=== PATIENT | male | born 1970 | race Caucasian/White ===

== ENCOUNTER 2017-05-31 10:03 | Emergency (ER) | payer SELFPAY | END 2017-05-31 12:43 | disposition home or self-care (01) | PROVIDERS: Emergency Provider Emergency Medicine; Family Provider Emergency Medicine; Visit Provider Emergency Medicine | DX: G43.709 Chronic migraine without aura, not intractable, without status migrainosus (principal); J01.90 Acute sinusitis, unspecified; F17.210 Nicotine dependence, cigarettes, uncomplicated; Z88.1 Allergy status to other antibiotic agents; I10 Essential (primary) hypertension; E78.5 Hyperlipidemia, unspecified | CPT/HCPCS: 70450; 96372; 99284 ==

== ENCOUNTER → 2019-08-15 10:53 | Outpatient (CLI) | payer MEDICAID, SELFPAY ==
--- NOTE | 2019-08-15 10:58 | XR_ITS ---
PROCEDURE: XR KNEE RT 4V CLINICAL INDICATION: knee pain Pain and popping COMPARISON: No exams were available for comparison FINDINGS: No fracture or dislocation. No lytic or blastic change. There is normal mineralization. The joint spaces are well-preserved. No significant degenerative/arthritic changes. No erosive changes evident. Other findings:None. IMPRESSION: No acute findings. Dictated by: Shahid Vidal MD 08/15/2019 11:30 Electronically signed by Shahid Vidal MD in [place] 08/15/2019 11:30
== END ==
PROVIDERS: PCP Nurse Practitioner Family; Visit Provider Nurse Practitioner Family
DX: M25.561 Pain in right knee (principal)
CPT/HCPCS: 73564

== ENCOUNTER → 2019-08-20 13:11 | Outpatient (CLI) | payer MEDICAID, SELFPAY ==
--- NOTE | 2019-08-20 13:20 | MR_ITS ---
PROCEDURE: MR KNEE RT WO CON CLINICAL INDICATION: knee pain Medial knee pain COMPARISON: XR KNEE RT 4V from 08/15/2019 TECHNIQUE: Routine multiplanar multi echo sequences are performed without gadolinium enhancement. FINDINGS: The cruciate ligaments, collateral ligaments and patellar and quadriceps tendon appear intact. The lateral meniscus has an unremarkable appearance. There appears to be a small bucket-handle tear involving the posterior horn of the medial meniscus along the anterior aspect of the posterior horn. In addition there appears to be a defect in the medial aspect of the medial meniscus superiorly with abnormal configuration of the medial meniscus at this region suggesting an additional tear. There are mild tricompartmental osteoarthritic changes with some bone marrow edema the proximal tibia posteriorly as well as the medial femoral condyle. There is a small knee joint effusion with a small Dominguez's cyst. IMPRESSION: 1. There appears to be a nondisplaced bucket-handle type tear involving the posterior horn of the medial meniscus. An additional tear is felt to be in the medial meniscus medially along the body of the meniscus and posterior horn 2. Bone marrow edema of the medial femoral condyle and medial tibial plateau nonspecific. 3. Osteoarthritis Dictated by: Shahid Vidal MD 08/22/2019 09:57 Electronically signed by Shahid Vidal MD in [place] 08/22/2019 09:57
== END ==
PROVIDERS: PCP Nurse Practitioner Family; Visit Provider Orthopaedic Surgery
DX: M25.561 Pain in right knee (principal)
CPT/HCPCS: 73721

== ENCOUNTER 2019-11-21 13:04 | Emergency (ER) | payer MEDICAID, SELFPAY ==
[2019-11-21 13:05] VITALS: BP 138/52; PULSE 88; RESP 18; TEMP 36.9; O2SAT 97; BMI 27.3
--- NOTE | 2019-11-21 13:28 | HMH.EDGENADL ---
ED Disposition Clinical Impression: Edema at injection site Disposition: Home, Self-Care Condition on Discharge: Good Instructions: Edema (Alternative Therapy) Prescriptions: Compression Socks, Medium [Compression Socks] 1 each MC DAILY 30 Days #2 each Prescription Printed Referrals: Dom Menon MD [Primary Care Provider] - - Critical Care Critical Care Time: No Attestation: On 11/21/19, the high probability of a clinically significant, sudden or life threatening deterioration of the following system(s) required my full and direct attention, intervention and personal management. The time I documented below is in addition to time spent performing reported procedures but includes the following listed in this critical care notation. Medical Decision Making - Medical Records Medical records reviewed: Yes: I reviewed the patient's medical records. - Nakul Inquiry Pt receiving controlled substance: No - Lab Data Lab results reviewed: Yes: I reviewed the patient's lab results. General Adult HPI - General Chief complaint: Extremity Injury, Lower Stated complaint: both legs swollen Time Seen by Provider: 11/21/19 13:27 Source of Information: Patient - History of Present Illness HPI narrative: 49-year-old male is noticed some swelling bilaterally in his lower extremities. He states his been going on for a few days and has progressively gotten worse. He describes a tight feeling in both legs and he denies any other symptoms. He states he denies any recent fever shakes or chills he also denies any cough or shortness of breath patient also denies any headache malaise arthralgias myalgias or loss of sense of smell or taste. - Related Data Previous Rx's Medication Instructions Recorded lisinopril 10 mg tablet 10 mg PO DAILY #90 tab 06/07/19 clopidogrel 75 mg tablet 75 mg PO DAILY #90 tab 06/12/19 Compression Socks, Medium 1 each MC DAILY 30 Days #2 each 11/21/19 [Compression Socks] Allergies Allergy/AdvReac Type Severity Reaction Status Date / Time vancomycin [VANCOMYCIN] Allergy Intermediate red man Verified 08/23/19 10:20 syndrome [facility] History - Hepatitis A Screen Attestation statement:: This patient has been screened for Hepatitis A risk factors. I have reviewed the patient's past medical history: Yes Medical History: Reports:: Hypertension Denies:: Diabetes Mellitus Type 1, Diabetes Mellitus Type 2, MRSA Other Medical History: Reports: Arthritis, Other Other Surgeries: Yes: Appendectomy, Coronary Stent, Hernia Repair, Other Amputation: No Fractures: Yes Comment: left ankle,testicle surgery, left wrist - Social History Smoking Status: Current every day smoker Tobacco Type: cigarettes # Packs/Day (cigarettes): 1 Alcohol Intake: never Substance Use Type: opiates Occupational Status: other Family Hx:: Cancer, Heart Attack, Diabetes ROS Obtained: Yes All systems reviewed & no additional complaints - Constitutional Constitutional: Reports system reviewed and no additional complaints, except as docu - Eyes Eyes: Reports system reviewed and no additional complaints, except as docu - ENT Ears, Nose, Mouth, and Throat: Reports abnormal hearing - Cardiovascular Cardiovascular: Reports system reviewed and no additional complaints, except as docu - Respiratory Respiratory: Yes system reviewed and no additional complaints, except as docu - Gastrointestinal Gastrointestingal: Reports: system reviewed and no additional complaints, except as docu - Genitourinary Male Genitourinary: Reports system reviewed and no additional complaints, except as docu Female Genitourinary: Reports system reviewed and no additional complaints, except as docu - Musculoskeletal Musculoskeletal: Reports system reviewed and no additional complaints, except as docu - Integumentary/Breasts Skin/Breast: Reports system reviewed and no additional complaints, except as docu - Neurologic Neurol
[2019-11-21 14:08] VITALS: BP 126/74; PULSE 76; RESP 14; TEMP 36.8; O2SAT 98
== END 2019-11-21 14:10 | disposition home or self-care (01) ==
PROVIDERS: Emergency Provider Family Medicine; PCP Emergency Medicine
DX: R60.0 Localized edema (principal); I10 Essential (primary) hypertension; F17.210 Nicotine dependence, cigarettes, uncomplicated; Z90.49 Acquired absence of other specified parts of digestive tract
CPT/HCPCS: 99281

== ENCOUNTER → 2020-01-09 16:39 | Outpatient (CLI) | payer MEDICAID, SELFPAY | PROVIDERS: PCP Physician Assistant; Visit Provider Physician Assistant | DX: Z03.818 Encounter for observation for suspected exposure to other biological agents ruled out (principal) | CPT/HCPCS: U0003 ==

== ENCOUNTER 2020-01-25 16:33 | Emergency (ER) | payer MEDICAID, SELFPAY ==
[2020-01-25 16:44] VITALS: BP 136/99; PULSE 85; RESP 18; TEMP 36.9; O2SAT 98; BMI 27.0
--- NOTE | 2020-01-25 17:05 | HMH.EDUTC ---
[facility] [place] Clinical Impression: Vomiting and diarrhea, Viral syndrome Disposition: Home, Self-Care Condition on Discharge: Good Instructions: DI for Vomiting -- Adult, Nausea and Vomiting-Adult, Diarrhea, Preventing the Spread of Coronavirus Discharge Instructions Additional Instructions: *Monitor Temp, Over the counter Motrin or Tylenol as directed/as needed Tylenol every 4 hours and Motrin every 6 hours (as long as your family doctor has told you that you can take it) for fever or pain. and straight to ER if unable to lower temp less than 101.0 after medication given *Warm salt water gargles may help to soothe the throat *Throat Lozenges *Warm fluids like tea with honey may help to soothe the throat *Sleep elevated *Humidifier/Vaporizer You was tested for COVID 19. call back to the [facility] in the next 48-72 hours for the result of your COVID test You was given handout with instructions to Self Quarantine and Self Isolation make sure to follow instructions Make sure that you are drinking plenty of fluids to keep yourself hydrated Return if needed Your throat swab was sent for culture. Those results are typically sent to your primary care. Be sure to follow up in 2-3 days with your family doctor/primary care physician if no improvement so they can review those result and treat if necessary. If you don?t have a primary care doctor, I recommend you get one but in the mean time, you will have to return to a walk in clinic Follow up IMMEDIATELY for new or worsening symptoms or no Noticeable improvement over the next 48-72 hours. 911 for difficulty breathing or swallowing Prescriptions: Ondansetron [Zofran 4mg ODT] 4 mg PO Q8HP PRN #6 tab.rapdis PRN Reason: Nausea Prescription Printed Referrals: Amanda Leblanc PA [Primary Care Provider] - As needed Time of Disposition: 17:23 Medical Decision Making - Nakul Inquiry Pt receiving controlled substance: No Nakul was queried for this patient: No Vital Signs: 01/25/20 16:44 Temperature 98.4 F Temperature Source Oral Pulse Rate [Radial] 85 Respiratory Rate 18 Blood Pressure [Right Arm] 136/99 H Blood Pressure Mean [Right Arm] 111 Blood Pressure Source [Right Arm] Automatic Cuff 02 Sat by Pulse Oximetry 98 Oxygen Delivery Method Room Air Orders (Tests/Meds): ORDERS Category Date Time Status SARS-CoV-2, JUAN ([place]) Stat Lab 01/25/20 16:47 Ordered [facility] [place] HPI - General Stated complaint: Body aches, diarrhea, vomiting Time Seen by Provider: 01/25/20 17:05 Mode of Arrival: Ambulatory Source of Information: Patient Limitations: No Limitations Description of Symptoms (Recalled from Triage Doc. by RN): diarrhea, vomiting, joint pain, sore throat, fever. states he was recently tested for covid and it was negative. HEENT Symptoms (Recalled from RN notes): Yes Resp Symptoms (Recalled from RN notes): No Skin Symptoms (Recalled from RN notes): No MS Symptoms (Recalled from RN notes): Yes Functional Status (Recalled from RN notes): wnl - History of Present Illness Provider Complaint: Patient states that he hasnt been feeling well on and off for a couple of weeks States that he was tested for COVID and was negative State that for the last several days he was feeling worse States that he has been having vomiting and diarrhea and was aftraid that now he may be positive and work wanted him tested before they would let him come back to work - Related Data Home Medications Medication Instructions Recorded Confirmed aspirin 81 mg tablet,delayed 81 mg PO DAILY 12/23/19 12/23/19 release Previous Rx's Medication Instructions Recorded lisinopril 10 mg tablet 10 mg PO DAILY #90 tab 06/07/19 clopidogrel 75 mg tablet 75 mg PO DAILY #90 tab 06/12/19 Ondansetron [Zofran 4mg ODT] 4 mg PO Q8HP PRN #6 tab.rapdis 01/25/20 Allergies Allergy/AdvReac Type Severity Reaction Status Date / Time vancomycin [VANCOMYCIN] Allergy Intermediate red man Camila
[2020-01-25 17:28] VITALS: BP 136/99; PULSE 85; RESP 18; TEMP 36.9; O2SAT 98
[2020-01-27 09:54] LABS: Covid-19 Nasal PCR Sendout UK NOT DETECTED
== END 2020-01-25 17:31 | disposition home or self-care (01) ==
PROVIDERS: Emergency Provider Nurse Practitioner; PCP Physician Assistant
DX: B34.9 Viral infection, unspecified (principal); Z20.828 Contact with and (suspected) exposure to other viral communicable diseases; I10 Essential (primary) hypertension
CPT/HCPCS: 99201; U0003

== ENCOUNTER 2020-08-17 22:29 | Emergency (ER) | payer MEDICAID, SELFPAY ==
[2020-08-18 01:54] VITALS: BP 183/103; PULSE 66; RESP 19; TEMP 36.7; O2SAT 100; BMI 29.0
[2020-08-18 02:00] VITALS: PULSE 67; O2SAT 100
--- NOTE | 2020-08-18 02:11 | XR_ITS ---
PROCEDURE: XR WRIST RT MIN 3V CLINICAL INDICATION: pain and swelling to hand/wrist post fall COMPARISON: No exams were available for comparison FINDINGS: No fracture or dislocation. No lytic or blastic change. There is normal mineralization. The joint spaces are well-preserved. No significant degenerative/arthritic changes. No erosive changes evident. Other findings:None. IMPRESSION: No acute findings. Dictated by: Shahid Vidal MD 08/18/2020 05:23 Shahid Vidal MD in [place] 08/18/2020 05:23
--- NOTE | 2020-08-18 02:11 | XR_ITS ---
PROCEDURE: XR HAND RT MIN 3V CLINICAL INDICATION: pain and swelling to hand/wrist post fall COMPARISON: No exams were available for comparison FINDINGS: Nondisplaced mildly impacted fracture involves distal shaft of the 5th metacarpal. There is mild radial and palmar angulation of the distal fracture fragment. Osteoarthritic change 1st metacarpal phalangeal joint. Other findings:None. IMPRESSION: Nondisplaced mildly impacted fracture distal 5th metacarpal Dictated by: Shahid Vidal MD 08/18/2020 05:24 Shahid Vidal MD in [place] 08/18/2020 05:24
--- NOTE | 2020-08-18 02:11 | XR_ITS ---
PROCEDURE: XR FOREARM RT 2V CLINICAL INDICATION: pain and swelling to right hand after fall COMPARISON: No exams were available for comparison FINDINGS: No fracture or dislocation. No lytic or blastic change. There is normal mineralization. The joint spaces are well-preserved. No significant degenerative/arthritic changes. No erosive changes evident. Other findings:None. IMPRESSION: No acute findings. Dictated by: Shahid Vidal MD 08/18/2020 05:25 Shahid Vidla MD in [place] 08/18/2020 05:25
--- NOTE | 2020-08-18 03:32 | HMH.EDUPEXT ---
ED Disposition Clinical Impression: Isak's fracture Qualifiers: Encounter type: initial encounter Fracture type: closed Qualified Code(s): S62.339A - Displaced fracture of neck of unspecified metacarpal bone, initial encounter for closed fracture Disposition: Home, Self-Care Condition on Discharge: Good Instructions: DI for a Hand Fracture Additional Instructions: ice and call ortho this am Referrals: Dom Menon MD [Primary Care Provider] - Rosalinda Barahona MD [Physician] - - Critical Care Critical Care Time: No Attestation: On 08/17/20, the high probability of a clinically significant, sudden or life threatening deterioration of the following system(s) required my full and direct attention, intervention and personal management. The time I documented below is in addition to time spent performing reported procedures but includes the following listed in this critical care notation. Medical Decision Making - Medical Records Medical records reviewed: Yes: I reviewed the patient's medical records. - Nakul Inquiry Pt receiving controlled substance: No Vital Signs: 08/18/20 01:54 08/18/20 02:00 Temperature 98.1 F Temperature Source Oral Pulse Rate [Left Brachial] 66 67 Respiratory Rate 19 Blood Pressure [Left Arm] 183/103 H Blood Pressure Mean [Left Arm] 129 Blood Pressure Source [Left Arm] Automatic Cuff 02 Sat by Pulse Oximetry 100 100 Oxygen Delivery Method Room Air Room Air Orders (Tests/Meds): ORDERS Category Date Time Status XR forearm RT 2V Stat Exams 08/18/20 02:11 Taken XR hand RT min 3V Stat Exams 08/18/20 02:11 Taken XR wrist RT min 3V Stat Exams 08/18/20 02:11 Taken - Radiology Data #1 Image(s): Forearm, Wrist, Hand Image Reviewed: Yes I reviewed the patient's radiology image Preliminary Findings: Abnormal (boxholger fx ) Medical Decision Narrative: has boxers fx and will refer to ortho Upper Extremity HPI - General Chief Complaint: Extremity Injury, Upper Stated Complaint: AO 08/16 injured R hand Time Seen by Provider: 08/18/20 02:20 Mode of Arrival: Ambulatory Source of Information: Patient, Medical Record Limitations: No Limitations Description of Symptoms (Recalled from ER Triage Doc. by RN): Pt reports he fell 08/16/20 AM when walking and he fell with his right hand closed, fist striking the ground. Pt c/o pain and swelling to right hand. He also reports that he has trouble moving 4th and 5th digits and wrist of right hand. - History of Present Illness HPI narrative: fell with injury to rt hand with pain and swelling MD complaint: injury to: right, hand Onset (ago): day(s) Other Extremity Injury: Right: hand, wrist Handedness: right Place: home Severity: moderate Context: fall Associated symptoms: denies other symptoms - Related Data Home Medications Medication Instructions Recorded Confirmed aspirin 81 mg tablet,delayed 81 mg PO DAILY 12/23/19 12/23/19 release Previous Rx's Medication Instructions Recorded lisinopril 10 mg tablet 10 mg PO DAILY #90 tab 06/07/19 clopidogrel 75 mg tablet 75 mg PO DAILY #90 tab 06/12/19 Ondansetron [Zofran 4mg ODT] 4 mg PO Q8HP PRN #6 tab.rapdis 01/25/20 Allergies Allergy/AdvReac Type Severity Reaction Status Date / Time vancomycin [VANCOMYCIN] Allergy Intermediate red man Verified 12/23/19 09:56 syndrome [facility] History - Hepatitis A Screen Drug use history?: Yes High risk sexual behaviors?: No History of sexually transmitted infection?: No Currently employed?: No Childcare worker?: No Do you have indoor plumbing?: Yes Do you have electricity?: Yes Attestation statement:: This patient has been screened for Hepatitis A risk factors. I have reviewed the patient's past medical history: Yes Medical History: Reports:: Hypertension Denies:: Cancer, Diabetes Mellitus Type 1, Diabetes Mellitus Type 2, Internal Pacemaker, MRSA Other Medical History: Reports: Arth
[2020-08-18 04:08] VITALS: BP 157/84; PULSE 67; RESP 18; TEMP 36.7; O2SAT 100
== END 2020-08-18 04:10 | disposition home or self-care (01) ==
PROVIDERS: Emergency Provider Emergency Medicine; PCP Emergency Medicine
DX: S62.306A Unspecified fracture of fifth metacarpal bone, right hand, initial encounter for closed fracture (principal); W01.0XXA Fall on same level from slipping, tripping and stumbling without subsequent striking against object, initial encounter; Y92.019 Unspecified place in single-family (private) house as the place of occurrence of the external cause; I10 Essential (primary) hypertension; F17.210 Nicotine dependence, cigarettes, uncomplicated
CPT/HCPCS: 29125; 73090; 73110; 73130; 99283

== ENCOUNTER → 2020-08-21 10:49 | Outpatient (CLI) | payer MEDICAID, SELFPAY ==
[2020-08-21 11:12] LABS: Basophils # 0.1 K/mm3 (0-0.2); Basophils % 1.5 % (0.1-2.0); Eosinophils # 0.2 K/mm3 (0.0-0.4); Eosinophils % 3.2 % (0.1-12.0); Hematocrit 49.1 % (42.0-52.0); Hemoglobin 15.7 g/dL (14.1-18.0); Lymphocytes # 2.9 K/mm3 (0.7-4.5); Lymphocytes % 43.5 % (10-50); Mean Corpuscular HGB Conc 32.1 g/dL (31.8-35.4); Mean Corpuscular Hemoglobin 32.9 pg (27.0-31.2); Mean Corpuscular Volume 102.6 fl (80-94); Mean Platelet Volume 7.8 fl (7.4-10.4); Monocytes # 0.4 K/mm3 (0.1-1.0); Neutrophils # 3.1 K/mm3 (1.8-7.8); Neutrophils % 45.9 % (37.0-80.0); Platelet Count 194 K/mm3 (142-424); Red Blood Count 4.78 M/mm3 (4.60-6.20); Red Cell Distribution Width 14.2 % (11.5-17.5); White Blood Count 6.8 K/mm3 (4.8-10.8)
[2020-08-21 11:22] LABS: Chloride 105 mmol/L (98-107); Sodium 142 mmol/L (136-145)
[2020-08-21 11:23] LABS: Potassium 4.7 mmoL/L (3.5-5.1)
[2020-08-21 11:25] LABS: Blood Urea Nitrogen 10 mg/dl (9-20); Estimated Glomerular Filt Rate 102 ml/min (>60); GFR (African American) 124 ML/MIN (>60)
[2020-08-21 11:26] LABS: Anion Gap 10.7 mEq/L (5-15); Calcium 9.8 mg/dl (8.4-10.2); Carbon Dioxide 31 mmol/L (22.0-30.0); Glucose 107 mg/dl (74-100)
== END ==
PROVIDERS: Visit Provider Orthopaedic Surgery
DX: Z01.818 Encounter for other preprocedural examination (principal); S62.339A Displaced fracture of neck of unspecified metacarpal bone, initial encounter for closed fracture
CPT/HCPCS: 36415; 80048; 85025

== ENCOUNTER → 2020-08-25 12:42 | Outpatient (CLI) | payer MEDICAID, SELFPAY ==
[2020-08-25 13:38] LABS: Coronavirus 19 IgG Antibody Negative (Negative); Coronavirus 19 IgM Antibody Negative (Negative)
== END ==
PROVIDERS: Visit Provider Orthopaedic Surgery
DX: Z01.818 Encounter for other preprocedural examination (principal); Z20.822 Contact with and (suspected) exposure to COVID-19; S62.339A Displaced fracture of neck of unspecified metacarpal bone, initial encounter for closed fracture
CPT/HCPCS: 36415; 86328

== ENCOUNTER 2020-08-26 06:17 | Day surgery (SDC) | payer MEDICAID, SELFPAY ==
[2020-08-24 15:07] VITALS: BMI 27.0
[2020-08-26] VITALS (14 sets, daily range): BP systolic 116–144; BP diastolic 69–91; PULSE 63–75; RESP 14–18; TEMP 6.1–43; O2SAT 92–100
--- NOTE | 2020-08-26 07:06 | HMH.ANESCL ---
[facility] Anesthesia Checklist - Patient Identification Patient Identification: Arm Band - Structural Data Admitted From: Home Planned Operative Procedure/s: ORIF - Consent for Planned Operative Procedure(s) Verified: Yes - Additional verifications Anesthesia Reactions: No Hx Blood Transfusions: Yes (october 2019) Blood Transfusion Reaction: No - Airway Assessment C-Spine Mobility Assessed: Yes TMJ Mobility Assessed: Yes Dentition: Edentulous - Neurological Assessment Level of Consciousness: Awake Hx Seizures: No Numbness or tingling in extremities: No - Anesthesia Plan Anesthesia Risk discussed: Yes Anesthesia Plan: Verified ASA Class: III Anesthesia Type: General w/block [facility] History I have reviewed the patient's past medical history: Yes Medical History: Reports:: Coronary Artery Disease, Hypertension, Myocardial Infarction Denies:: Cancer, Diabetes Mellitus Type 1, Diabetes Mellitus Type 2, Internal Pacemaker, MRSA, Seizures *Have you ever received a pneumonia vaccine?: No *Have you received a flu vaccine this season?: No Other Medical History: Reports: Arthritis, Other. Denies: Blood Transfusion Reaction Anesthesia experience/problems:: None Laterality Cases: Left: Other (wrist, testicle, ankle) Other Surgeries: Yes: Appendectomy, Coronary Stent, Hernia Repair, Other. No: Pacemaker Amputation: No Fractures: Yes - *Social History Smoking Status: Current every day smoker Tobacco Type: cigarettes # Packs/Day (cigarettes): 1 Alcohol Intake: former Substance Use Type: other *Occupational Status:: employed Housing: house *Travel in the last 8 weeks: None Family Hx:: Cancer, Heart Attack, Diabetes
--- NOTE | 2020-08-26 08:56 | HMH.ANESI ---
[facility] [place] Anesthesia Record Part I Intake, IV Amount: 400 Estimated blood loss (mL): 1 Urine output (mL): 0 Blood Pressure: 116/69 SaO2: 96 Pulse Rate: 73 Respiratory Rate: 14 Temperature: 97.3 F Patient is:: Drowsy Stable to PACU at:: 08:51
--- NOTE | 2020-08-26 10:55 | HMH.OPNOTE ---
Date of procedure: 08/26/20 Pre-op Diagnosis:: R small finger (5th) metacarpal neck fracture Post-op Diagnosis:: R small finger (5th) metacarpal neck fracture Procedure performed:: closed reduction percutaneous pinning (CRPP) R small finger (5th) metacarpal neck fracture Surgeon:: Rosalinda Barahona MD Pollution Control Chemist(s):: Roopa Pereira PROFILING MACHINE SET UP OPERATOR TOOL:: Other (Nigel Eng) Anesthesia: regional (supraclavicular nerve block), LMA Estimated blood loss (mL): 5 Clinical Note:: 50yo right hand dominant gentleman who sustained an injury to the right hand 08/16/20. He was walking when he fell, landing on the outstretched right arm with the hand closed into a fist. The fist struck the ground and he felt immediate pain, with swelling soon thereafter. After the pain failed to improve he was seen in the ER on 08/18/20, where he was told he had a boxer's fracture and placed into an ulnar gutter splint. No open wounds noted, denies numbness or tingling in the right hand. He is a smoker but says he is otherwise healthy. He's had a stent placed in the iliac artery and is on aspirin and plavix. He is also on medication for his blood pressure. Allergic to vancomycin, which has apparently given him red man syndrome. He works in [employer]. A fracture was seen of the 5th (small) metacarpal neck, with mild shortening and volar angulation on XR that are within acceptable limits, but the patient had a clinical rotational deformity that was not acceptable. Therefore I I recommended surgical intervention. I discussed the risks of surgery with the patient, including but not limited to bleeding, infection, nonunion/malunion, postoperative stiffness/pain, need for further surgical procedures in the future, possible need for postoperative Occupational Therapy, postoperative numbness in the finger, and risks of anesthesia. The patient vocalized understanding and provided informed consent for the procedure. Will plan on closed reduction percutaneous pinning (CRPP), possible ORIF R small finger metacarpal neck fracture. Operative findings:: implanted k-wires x2, 0.045-in each Operative note:: The patient was identified in pre-operative holding and the right hand marked by myself. Consent was reviewed with the patient and all questions answered. Regional nerve block was performed by anesthesia (supraclavicular block). He was then taken to the OR and placed supine on the OR table with the right arm on a hand table. 1g Ancef was infused intravenously and general anesthesia with an LMA induced. A non-sterile tourniquet was placed on the upper right arm, splint was removed, and the right arm prepped and draped in the usual sterile fashion. Timeout was performed, identifying the correct patient, correct procedure, and correct site. C-arm was brought in to image the hand. The 5th metacarpal neck fracture was visualized and reduced in a closed fashion using the Jahss maneuver. Once acceptable alignment was achieved, it was stabilized with one axial k-wire, 0.045-in. This was used to provisionally hold the reduction while the next two wires were placed. Acceptable alignment of the fracture was seen on c-arm, and clinically the finger was straight without further rotational deformity. Next, TWO 0.045-in k-wires were placed, starting at the tuberosities of the metacarpal neck and advancing proximally in a retrograde fashion, crossing both wires proximal to the fracture site and anchoring them within the proximal metacarpal. The axial wire was then removed, and reduction held nicely. This concluded the procedure and tourniquet was never inflated. Blood loss was minimal and no incisions were made, wires placed percutaneously. Overall alignment/reduction of the fracture was within appropriate limits and no further rotational deformity of the finger seen. The wires were trimmed and bent with around 0.5cm exposed outside the hand; pin cap was placed. Xeroform, 4x4s, webril were applied and an plaster ulnar gutter splint applied. Th
--- NOTE | 2020-08-26 15:15 | P.PN_ITS ---
[facility] [place] Anesthesia Record Part II Discharge Time: 09:54 Destination: Surgical Day Care (OP Surgery) PACU nurse assessment reviewed?: Yes Patient Condition:: Good Anesthesia Complications:: None Swallowing reflex intact?: Yes Cyanosis?: No Blood Pressure: 133/87 Pulse Rate: 64 Temperature: 97.2 F Mental Status: Alert & Oriented Pain level:: 5 Nausea and/or vomitting:: None Intake, IV Amount: 800
== END 2020-08-26 10:28 | disposition home or self-care (01) ==
LOC: OR 06:18
PROVIDERS: PCP Emergency Medicine; Visit Provider Orthopaedic Surgery
PROC: (CPT 26608; principal; 2020-08-26 07:30)
DX: W01.0XXA Fall on same level from slipping, tripping and stumbling without subsequent striking against object, initial encounter; Z95.820 Peripheral vascular angioplasty status with implants and grafts; I25.10 Atherosclerotic heart disease of native coronary artery without angina pectoris; I10 Essential (primary) hypertension; I25.2 Old myocardial infarction; Z72.0 Tobacco use; S62.336A Displaced fracture of neck of fifth metacarpal bone, right hand, initial encounter for closed fracture
CPT/HCPCS: 26608; 73120; 76000; 96374

== ENCOUNTER → 2020-09-04 09:40 | Outpatient (CLI) | payer MEDICAID, SELFPAY ==
--- NOTE | 2020-09-04 09:48 | XR_ITS ---
PROCEDURE: XR HAND RT MIN 3V CLINICAL INDICATION: s/p RT 5th MC neck fracture COMPARISON: CR XR HAND RT MIN 3V from 08/18/2020 FINDINGS: Internal fixation of the right 5th metacarpal is noted. Healing fracture of the right 5th metacarpal diaphysis is noted with the angulation. No other acute fractures or dislocations. Bone density is within normal limits. The carpals, metacarpals and phalanges are unremarkable. No significant soft tissue abnormality. IMPRESSION: Internal fixation of the right 5th metacarpal. Healing fracture of the right 5th metacarpal diaphysis Dictated by: Jenise Michael 09/04/2020 10:04 Jenise Michael in [place] 09/04/2020 10:04
== END ==
PROVIDERS: PCP Emergency Medicine; Visit Provider Orthopaedic Surgery
DX: S62.339A Displaced fracture of neck of unspecified metacarpal bone, initial encounter for closed fracture (principal); Z09 Encounter for follow-up examination after completed treatment for conditions other than malignant neoplasm
CPT/HCPCS: 73130

== ENCOUNTER 2020-09-07 11:14 | Emergency (ER) | payer MEDICAID, SELFPAY ==
[2020-09-07 11:15] VITALS: BP 158/83; PULSE 90; RESP 18; TEMP 37.9; O2SAT 98; BMI 28.0
--- NOTE | 2020-09-07 11:42 | HMH.EDGENADL ---
ED Disposition Clinical Impression: Shingles Qualifiers: Herpes zoster complications: without complications Qualified Code(s): B02.9 - Zoster without complications Disposition: Home, Self-Care Condition on Discharge: Good Instructions: DI for Shingles Prescriptions: Hydrocod/Acet 5/325 mg [[place] 5/325mg tablet] 1 tab PO Q4HP PRN #12 tab PRN Reason: Moderate Pain Transmission Status: Sent to [facility] methylPREDNISolone [Medrol 4mg tab] 4 mg PO DIRECTED #21 tab Transmission Status: Pending to [facility] Valacyclovir HCl [Valacyclovir] 1,000 mg PO TID 7 Days #21 tab Transmission Status: Pending to [facility] Referrals: Dom Menon MD [Primary Care Provider] - - Critical Care Critical Care Time: No Attestation: On 09/07/20, the high probability of a clinically significant, sudden or life threatening deterioration of the following system(s) required my full and direct attention, intervention and personal management. The time I documented below is in addition to time spent performing reported procedures but includes the following listed in this critical care notation. Medical Decision Making - Medical Records Medical records reviewed: Yes: I reviewed the patient's medical records. - Nakul Inquiry Pt receiving controlled substance: Yes Nakul was queried for this patient: Yes Risks and benefits of using a controlled substance: were discussed with pt by me Vital Signs: 09/07/20 11:15 Temperature 100.3 F H Temperature Source Oral Pulse Rate [Left Radial] 90 Respiratory Rate 18 Blood Pressure [Left Arm] 158/83 H Blood Pressure Mean [Left Arm] 108 Blood Pressure Source [Left Arm] Automatic Cuff Blood Pressure Position [Left Arm] Sitting 02 Sat by Pulse Oximetry 98 Oxygen Delivery Method Room Air Orders (Tests/Meds): ED MEDICATIONS Discontinued Medications Generic Name Dose Route Start Last Admin Trade Name Freq PRN Reason Stop Dose Admin Hydrocodone Bitart/Acetaminophen 1 tab 09/07/20 11:37 09/07/20 11:57 Hydrocodone 10mg/Apap 325mg Tab PO 09/07/20 11:38 1 tab ONCE ONE Administration - Reevaluation(s) Time: 12:04 Reevaluation #1: On reevaluation, the patient is feeling better. Pain is slightly improved. There is no evidence of extension into the eye, nose or ear. Patient be discharged with short course of antivirals, steroids as well as pain medication. He does need reevaluation by his PCP in 48 hours or return to the emergency department. Given strict return precautions. Verbalized understanding. Medical Decision Narrative: This is a 50-year-old male presented to the emergency department with a rash on his forehead and upper head. The findings are consistent with shingles. They are very tender to palpation. Patient does have some lymphadenopathy in the posterior auricular on the left side as well as the cervical nodes. Patient be treated symptomatically and reevaluated. General Adult HPI - General Chief complaint: PAIN Stated complaint: bump on head, dizzy Time Seen by Provider: 09/07/20 11:20 Mode of Arrival: Ambulatory Limitations: No Limitations Description of Symptoms (Recalled from ER Triage Doc. by RN): Pt reports he began having pain on L side of his neck lastnight. Pt reports he woke up this morning with a raised area on his head on the L side. Pt denies any injury. - History of Present Illness HPI narrative: This is a 50-year-old male presented to the emergency department with some pain on the left side of his head and neck. Patient states that he started having some discomfort in his left neck last night. He denies any trauma. He states that it was dull and nagging. Patient states that he woke up this morning and he noticed a rash on the left forehead and left upper head. He states that it was very tender. He could not even lay his head on the pillow or touch anything to the rash because it was hurting
[2020-09-07 12:18] VITALS: BP 158/83; PULSE 90; RESP 18; TEMP 37.9; O2SAT 98
== END 2020-09-07 12:18 | disposition home or self-care (01) ==
PROVIDERS: Emergency Provider Emergency Medicine; PCP Emergency Medicine
DX: B02.9 Zoster without complications (principal); I10 Essential (primary) hypertension; I25.10 Atherosclerotic heart disease of native coronary artery without angina pectoris; I25.2 Old myocardial infarction; Z88.1 Allergy status to other antibiotic agents; F17.210 Nicotine dependence, cigarettes, uncomplicated; Z79.899 Other long term (current) drug therapy
CPT/HCPCS: 99281

== ENCOUNTER → 2020-09-09 13:01 | Outpatient (CLI) | payer MEDICAID, SELFPAY ==
--- NOTE | 2020-09-09 13:05 | XR_ITS ---
PROCEDURE: XR HAND RT MIN 3V CLINICAL INDICATION: s/p RT 5th MC neck fracture Follow-up fracture COMPARISON: CR XR HAND RT MIN 3V from 08/18/2020 CR XR HAND RT MIN 3V from 09/04/2020 FINDINGS: K-wires present in the distal aspect of the 5th metacarpal. Healing fracture is noted at this region with mild anterior angulation of the distal fracture fragment. The joint spaces are well-preserved. No significant degenerative/arthritic changes. No erosive changes evident. Other findings:None. IMPRESSION: Healing 5th metacarpal fracture status post pinning with mild anterior angulation of the distal fracture fragment Dictated by: Shahid Vidal MD 09/09/2020 15:16 Shahid Vidal MD in [place] 09/09/2020 15:16
== END ==
PROVIDERS: PCP Emergency Medicine; Visit Provider Orthopaedic Surgery
DX: S62.339A Displaced fracture of neck of unspecified metacarpal bone, initial encounter for closed fracture (principal)
CPT/HCPCS: 73130

== ENCOUNTER 2020-09-09 13:27 | Outpatient (RCR) | payer MEDICAID, SELFPAY | END 2020-09-09 14:25 | disposition home or self-care (01) | LOC: OT 13:27 | PROVIDERS: Visit Provider Orthopaedic Surgery | DX: S62.339D Displaced fracture of neck of unspecified metacarpal bone, subsequent encounter for fracture with routine healing (principal) | CPT/HCPCS: 97760 ==

== ENCOUNTER → 2021-02-17 17:29 | Outpatient (CLI) | payer MEDICAID, SELFPAY | PROVIDERS: Visit Provider Nurse Practitioner Family | DX: L01.00 Impetigo, unspecified (principal) | CPT/HCPCS: 87070; 87077; 87186; 87205 ==